=== PATIENT | male | born 1990 | race African-American/Black ===

== ENCOUNTER 2019-10-21 21:50 | Emergency (ER) | payer OTHER ==
[~2019-10-21] VITALS: Ht 182.9 cm; Wt 89.0 kg
[2019-10-22] MEDS ORDERED: IBUPROFEN 600MG TABLET PO ONE
[2019-10-22 00:11] VITALS: BP 108/87
== END 2019-10-22 00:13 | disposition home or self-care (01) ==
LOC: ER 21:50
DX: S09.90XA Unspecified injury of head, initial encounter (principal); V43.92XA Unspecified car occupant injured in collision with other type car in traffic accident, initial encounter; Y93.89 Activity, other specified; Y92.89 Other specified places as the place of occurrence of the external cause; Y99.8 Other external cause status
CPT/HCPCS: 99282